=== PATIENT | female | born 1950 | race Caucasian/White ===

== ENCOUNTER → 2017-04-02 | Outpatient (CLI) | payer OTHER ==
[~2017-04-02] MED LIST: IOPAMIDOL (ISOVUE-300) 100 ML BTL ONE
== END ==
LOC: CIMAGING 10:07
PROVIDERS: ATTEND Family Medicine
DX: Z12.31 Encounter for screening mammogram for malignant neoplasm of breast (principal); R91.8 Other nonspecific abnormal finding of lung field; K62.9 Disease of anus and rectum, unspecified; Q44.7 Other congenital malformations of liver; Z85.048 Personal history of other malignant neoplasm of rectum, rectosigmoid junction, and anus; Q42.8 Congenital absence, atresia and stenosis of other parts of large intestine; F17.200 Nicotine dependence, unspecified, uncomplicated
CPT/HCPCS: 71250; 74177; Q9967